=== PATIENT | female | born 1985 | race Caucasian/White ===

== ENCOUNTER 2019-07-27 19:15 | Inpatient (IN) | payer BC ==
[~2019-07-27 19:15] MED LIST: Bupivacaine 0.25% HCL 30 ML VIAL ONE
[2019-07-28 07:06] VITALS: BMI 27.9
[2019-07-28] MEDS ORDERED: FLU VACC QS2019-20(6MOS UP)/PF 60 MCG/0.5 ML SYRINGE IM ONE (07:15)
[2019-07-28] MEDS ORDERED: Lactated Ringer's 1,000 ML IV SCH (08:02)
[2019-07-28] MEDS ORDERED: NS w/ Oxytocin 10 units 500 ML IV SCH (08:02)
[2019-07-28] MEDS ORDERED: Ibuprofen 800 MG TAB PO PRN (08:02)
[2019-07-28] MEDS ORDERED: Lidocaine 1% (PF) 30 ML VIAL SC PRN (08:02)
[2019-07-28] MEDS ORDERED: HYDROcodone/Acetaminophen 5/325 mg Tablet PO PRN ×3 (08:02→16:22)
[2019-07-28] MEDS ORDERED: NS / Oxytocin 40 units/1000ml 1,000 ML IV PRN (08:02)
[2019-07-28] MEDS ORDERED: Ondansetron PF 4 MG/2 ML Vial IVP PRN ×3 (08:02→16:22)
[2019-07-28] MEDS ORDERED: hydrALAZINE 20 MG/ML VIAL SLOW IVP PRN ×2 (08:02→16:22)
[2019-07-28] MEDS ORDERED: Promethazine HCl 25 MG/ML VIAL IM PRN ×3 (08:02→16:22)
[2019-07-28 08:03] LABS: Hemoglobin 12.2 g/dL (12.0-16.0); Mean Corpuscular HGB CONC 33.8 g/dL (32.0-36.0); Mean Corpuscular Hemoglobin 28.4 pg (27.0-31.0); Mean Corpuscular Volume 84.3 fL (78.0-98.0); Mean Platelet Volume 9.3 fL (7.4-10.4); Platelet Count 153 thou/uL (130-400); RBC Distribution Width 13.1 % (11.5-14.5); White Blood Cell (WBC) Count 8.8 thou/uL (4.8-10.8)
[2019-07-28] MEDS: Lactated Ringer's 1,000 ML IV SCH ×2 (08:13→17:59)
[2019-07-28 08:38] LABS: HBSAg Index 0.16 S/CO (0-0.99); Hep B Surf Ag Non-Reactive S/CO (NonReactive)
[2019-07-28 08:39] LABS: Syphilis Antibody Nonreactive (Nonreactive); Syphilis Antibody Index 0.04 S/CO (<1.00 Non-Reactive)
[2019-07-28] MEDS ORDERED: Fentanyl 4 mcg/Bup 0.1% Cadd 100 ML ONE (09:24)
[2019-07-28] MEDS ORDERED: Fentanyl 100 MCG/2 ML VIAL ONE (09:44)
[2019-07-28] MEDS ORDERED: diphenhydrAMINE 50 MG/ML VIAL ONE (10:17)
--- NOTE | 2019-07-28 10:36 | PDOC.EVN ---
Event Note - Event Note Event Note: Asked to AROM by Dr. Burr. Comfortable s/p epidural. FHTs stable, reassuring. UCs q 2-4 mins. AROM- clear fluid. Plan: Cont. induction.
[2019-07-28] MEDS ORDERED: ePHEDrine/0.9% NaCl/PF SYRINGE 50 mg/10 ml SLOW IVP PRN (10:41)
[2019-07-28] MEDS ORDERED: Naloxone HCl 0.4 mg/ml Vial IVP PRN ×2 (10:41)
[2019-07-28] MEDS ORDERED: Lactated Ringer's 500 ML IV PRN (10:41)
[2019-07-28] MEDS ORDERED: Acetaminophen 325 MG TAB PO PRN (10:41)
[2019-07-28] MEDS ORDERED: diphenhydrAMINE 50 MG/ML VIAL IVP PRN (10:41)
[2019-07-28] MEDS ORDERED: Communication Order-Pharmacy FS PRN (10:45)
[2019-07-28] MEDS ORDERED: Fentanyl 4 mcg/Bupivacaine 0.1% Cassette 100 ML EPIDURAL SCH (10:45)
[2019-07-28] MEDS ORDERED: Adacel (T-DAP) 0.5 ML SYRINGE IM ONE (16:22)
[2019-07-28] MEDS ORDERED: diphenhydrAMINE 25 MG CAP PO PRN (16:22)
[2019-07-28] MEDS ORDERED: Lanolin Ointment 7 GM TUBE TOP PRN (16:22)
[2019-07-28] MEDS ORDERED: Benzocaine-Menthol 82.5 ML CAN TOP PRN (16:22)
[2019-07-28] MEDS ORDERED: Bisacodyl 10 MG SUPP PR PRN (16:22)
[2019-07-28] MEDS ORDERED: Zolpidem Tartrate 5 MG TAB PO PRN (16:22)
[2019-07-28] MEDS ORDERED: Milk Of Magnesia 30 ML UDCUP PO PRN (16:22)
[2019-07-28] MEDS ORDERED: Preparation H Ointment 28 GM TUBE PR PRN (16:22)
[2019-07-28] MEDS ORDERED: NS / Oxytocin 40 units/1000ml 1,000 ML IV SCH (16:22)
[2019-07-28] MEDS: Docusate Calcium (SURFAK) 240 MG CAP PO SCH (21:54)
[2019-07-28] MEDS: Ibuprofen 800 MG TAB PO SCH (21:54)
[2019-07-29] MEDS: Ibuprofen 800 MG TAB PO SCH ×2 (05:45→14:08)
[2019-07-29] MEDS: Docusate Calcium (SURFAK) 240 MG CAP PO SCH (08:44)
[2019-07-29] MEDS ORDERED: Prenatal Vitamin 1 TAB PO SCH (09:00)
[2019-07-29 11:48] VITALS: BP 121/72; TEMP 98.1
== END 2019-07-29 15:55 | disposition home or self-care (01) | DRG 807 ==
LOC: L&D 07-28 06:28 → L&D-LIB 07-28 10:51 → 3SE 07-28 16:30
PROVIDERS: ADMIT Obstetrics & Gynecology; ATTEND Obstetrics & Gynecology
PROC: 10E0XZZ Delivery of Products of Conception, External Approach (ICD-10-PCS; principal; 2019-07-28)
PROC: 3E033VJ Introduction of Other Hormone into Peripheral Vein, Percutaneous Approach (ICD-10-PCS; 2019-07-28)
PROC: 0HQ9XZZ Repair Perineum Skin, External Approach (ICD-10-PCS; 2019-07-28)
PROC: 10907ZC Drainage of Amniotic Fluid, Therapeutic from Products of Conception, Via Natural or Artificial Opening (ICD-10-PCS; 2019-07-28)
DX: O70.0 First degree perineal laceration during delivery (principal); Z37.0 Single live birth; Z3A.40 40 weeks gestation of pregnancy
CPT/HCPCS: 36415; 85027; 86780; 86850; 86900; 86901; 87340; J1200; J2590; J3010; S0020